=== PATIENT | female | born 1960 | race Caucasian/White ===

== ENCOUNTER 2021-05-10 16:14 | Emergency (ER) | payer OTHER ==
[~2021-05-10] VITALS: Ht 154.9 cm; Wt 74.8 kg
[2021-05-10 16:39] LABS: ABSOLUTE BASOPHILS 0.1 thou/uL (0.0-0.2); ABSOLUTE EOSINOPHILS 0.2 thou/uL (0.0-0.7); ABSOLUTE LYMPHOCYTES 1.5 thou/uL (0.8-5.3); ABSOLUTE MONOCYTES 0.4 thou/uL (0.0-1.2); ABSOLUTE NEUTROPHILS 4.1 thou/uL (1.6-8.1); BASOPHILS 1.5 %; EOSINOPHILS 2.5 %; HEMATOCRIT 35.7 % (37.0-47.0); HEMOGLOBIN 11.2 gm/dL (12.0-15.0); LYMPHOCYTES 24.6 %; MCH 20.6 pg (26.0-34.0); MCHC 31.3 g/dL (28.0-37.0); MCV 65.8 fL (80.0-100.0); MONOCYTES 6.2 %; MPV 7.3 fl. (7.2-11.1); NUCLEATED RBCS 0 /100WBC; PLATELET COUNT* 260 thou/uL (150-400); POLYS 65.2 %; RBC 5.42 mil/uL (4.20-5.00); RDW-CV 16.5 % (10.5-14.5); WBC 6.3 thou/uL (4.0-11.0)
[2021-05-10 16:45] LABS: CREATININE 0.9 mg/dL (0.6-1.3)
[2021-05-10 16:48] LABS: APTT 23.1 Seconds (25.0-31.3); PROTIME 10.4 Seconds (9.20-11.50)
[2021-05-10 17:00] LABS: ALBUMIN 3.4 g/dL (3.4-5.0); CK-MB MASS 0.6 ng/mL (<0.5-3.6); TOTAL BILIRUBIN 0.6 mg/dL (<0.1-1.0)
[2021-05-10] MEDS ORDERED: METFORMIN HCL500 M3 PO (17:18)
[2021-05-10] MEDS ORDERED: GLIPIZIDE 10 MG10 MG PO (17:18)
[2021-05-10 17:21] LABS: PLATELET ESTIMATE ADEQUATE
[2021-05-10 17:22] LABS: HYPOCHROMASIA 3+; MICROCYTES 3+
[2021-05-10 17:49] VITALS: BP 144/68
--- NOTE | 2021-05-11 10:06 | EKG ---
[place] [address] ELECTROCARDIOGRAM REPORT Name: SYED INGRAM Room: [facility]#: [id number] Admission: 05/10/21 Attend Phys: Discharge: 05/10/21 Date of : 62 Date of Service: 05/10/21 1627 Report #: [id number] THIS REPORT FOR: //name// [facility] ED Test Date: 2021-05-10 Test Time: 16:27:38 Pat Name: SYED INGRAM Department: Room: Gender: F Acid Mixer: CD : 1960 Requested By: Anupam Nieves Order Number: [id number] MD: Nic Vasques Measurements Intervals [place] Rate: 96 P: -6 AR: 144 QRS: -55 QRSD: 102 T: 32 QT: 362 QTc: 458 Interpretive Statements Sinus rhythm Inferior infarct, old Consider anterior infarct Baseline wander in lead(s) V2,V4 No previous ECG available for comparison Electronically Signed On 05-11-2021 10:06:03 CDT by Nic Vasques [email or web address] <ELECTRONICALLY SIGNED> By: Nic Vasques MD, [facility] 05/11/21 1006 1627 1627 Nic Vasques MD, [facility] /EPI
== END 2021-05-10 17:49 | disposition home or self-care (01) ==
LOC: M.ERS 16:14
PROVIDERS: Family Medicine
DX: E11.65 Type 2 diabetes mellitus with hyperglycemia (principal); R53.1 Weakness; Z88.0 Allergy status to penicillin